=== PATIENT | female | born 1960 | race Hispanic/Latino ===

== ENCOUNTER 2019-02-28 18:09 | Emergency (ER) | payer BC, OTHER ==
[~2019-02-28] VITALS: Ht 170.2 cm; Wt 93.0 kg
--- OUTSIDE RECORDS SUMMARY | 2019-02-28 18:13 | XMS REPORT ---
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 Allergies, Adverse Reactions, Alerts This patient has no known allergies or adverse reactions. Medications This patient has no known medications. Encounters Start Date/Time End Date/Time Encounter Type Admission Type Attending [facility] Care Department Encounter ID 2019-01-24 00:00:00 2019-01-24 00:00:00 Outpatient [facility] [id number] 2019-01-22 13:09:11 2019-01-22 13:09:11 Emergency [facility] [id number] 2019-01-17 00:00:00 2019-01-17 00:00:00 Outpatient [facility] [id number] 2019-01-03 00:00:00 2019-01-03 00:00:00 Outpatient [facility] [id number] 2018-11-12 00:00:00 2018-11-12 00:00:00 Outpatient [facility] [id number] 2018-11-08 00:00:00 2018-11-08 00:00:00 Outpatient [facility] [id number] 2018-11-08 00:00:00 2018-11-08 00:00:00 Outpatient [facility] [id number] 2018-10-28 00:00:00 2018-10-28 00:00:00 Outpatient [facility] [id number] 2018-10-27 11:27:40 2018-10-27 11:27:40 Outpatient [facility] [id number] 2018-10-22 10:58:58 2018-10-22 10:58:58 Outpatient [facility] [id number] 2018-10-08 14:15:21 2018-10-08 14:15:21 Outpatient [facility] [id number] 2018-10-08 13:13:28 2018-10-08 13:13:28 Outpatient [facility] [id number] 2018-09-28 13:03:00 2018-09-28 13:03:00 Emergency [facility] [id number] 2018-09-28 12:34:27 2018-09-28 12:34:27 Outpatient [facility] [id number] 2018-09-20 11:53:21 2018-09-20 11:53:21 Outpatient [facility] [id number] 2018-09-20 06:22:08 2018-09-20 06:22:08 Outpatient [facility] [id number] 2018-09-20 00:00:00 2018-09-20 00:00:00 Outpatient [facility] [id number] 2018-09-19 22:28:32 2018-09-19 22:28:32 Emergency [facility] [id number] 2018-09-19 22:17:56 2018-09-19 22:17:56 Emergency [facility] [id number] 2018-09-19 21:29:17 2018-09-19 21:29:17 Emergency [facility] [id number] 2018-09-19 20:30:17 2018-09-19 20:30:17 Outpatient [facility] [id number] 2018-07-22 07:36:21 2018-07-22 07:36:21 Outpatient [facility] [id number] 2018-06-25 00:00:00 2018-06-25 00:00:00 Outpatient [facility] [id number] 2018-06-23 00:00:00 2018-06-23 00:00:00 Outpatient [facility] [id number] 2018-06-11 00:00:00 2018-06-11 00:00:00 Outpatient [facility] [id number] 2018-04-16 00:00:00 2018-04-16 00:00:00 Outpatient [facility] [id number] 2018-03-23 00:00:00 2018-03-23 00:00:00 Outpatient [facility] [id number] 2018-02-24 00:00:00 2018-02-24 00:00:00 Outpatient [facility] [id number] 2018-02-09 12:59:43 2018-02-09 12:59:43 Outpatient [facility] [id number] 2018-01-13 14:40:36 2018-01-13 14:40:36 Outpatient [facility] [id number] 2018-01-13 13:14:57 2018-01-13 13:14:57 Outpatient [facility] [id number] 2017-12-18 14:47:32 2017-12-18 14:47:32 Outpatient [facility] [id number] 2017-12-18 13:06:53 2017-12-18 13:06:53 Outpatient [facility] [id number] 2017-12-08 00:00:00 2017-12-08 00:00:00 Outpatient [facility] [id number] 2017-10-09 00:00:00 2017-10-09 00:00:00 Outpatient [facility] [id number] 2017-09-18 00:00:00 2017-09-18 00:00:00 Outpatient [facility] [id number] 2017-09-17 00:00:00 2017-09-17 00:00:00 Outpatient [facility] [id number] 2017-09-09 00:00:00 2017-09-09 00:00:00 Outpatient [facility] [id number] 2017-09-07 00:00:00 2017-09-07 00:00:00 Outpatient [facility] [id number] 2017-08-13 00:00:00 2017-08-13 00:00:00 Outpatient [facility] [id number] 2017-08-11 00:00:00 2017-08-11 00:00:00 Outpatient [facility] [id number] 2017-07-24 00:00:00 2017-07-24 00:00:00 Outpatient [facility] [id number] 2017-07-14 00:00:00 2017-07-14 00:00:00 Outpatient [facility] [id number] 2017-07-07 00:00:00 2017-07-07 00:00:00 Outpatient [facility] [id number] 2017-07-01 13:52:00 2017-07-01 13:52:00 Outpatient [facility] [id number] 2017-06-29 00:00:00 2017-06-29 00:00:00 Outpatient [facility] [id number] 2017-06-11 12:40:08 2017-06-11 12:40:08 Outpatient [facility] [id number] 2017-06-05 00:00:00 2017-06-05 00:00:00 Outpatient [facility] [id number] 2017-06-04 10:21:43 2017-06-04 10:21:43 Outpatient [facility] [id number] 2017-06-03 09:10:37 2017-06-03 09:10:37 Outpatient [facility] [id number] 2017-05-26 00:00:00 2017-05-26 00:00:00 Outpatient [facility] [id number] 2017-05-19 13:08:33 2017-05-19 13:08:33 Outpatient [facility] [id number] 2017-05-14 00:00:00 2017-05-14 00:00:00 Outpatient [facility] [id number] 2017-04-30 12:47:03 2017-04-30 12:47:03 Outpatient [facility] [id number] 2017-04-29 12:08:51 2017-04-29 12:08:51 Outpatient [facility] [id number] 2017-04-27 09:57:46 2017-04-27 09:57:46 Outpatient [facility] [id number] 2017-04-16 14:51:14 2017-04-16 14:51:14 Outpatient [facility] [id number] 2017-04-09 00:00:00 2017-04-09 00:00:00 Outpatient [facility] [id number] 2017-03-25 09:29:02 2017-03-25 09:29:02 Outpatient [facility] [id number] 2017-03-12 08:33:26 2017-03-12 08:33:26 Outpatient [facility] [id number] 2017-03-04 00:00:00 2017-03-04 00:00:00 Outpatient [facility] [id number] 2017-02-23 00:00:00 2017-02-23 00:00:00 Outpatient [facility] [id number] 2017-02-18 10:05:39 2017-02-18 10:05:39 Outpatient [facility] [id number] 2017-02-13 00:00:00 2017-02-13 00:00:00 Outpatient [facility] [id number] 2017-02-10 08:36:58 2017-02-10 08:36:58 Outpatient [facility] [id number] 2017-02-06 13:36:09 2017-02-06 13:36:09 Outpatient [facility] [id number] 2017-02-05 10:05:28 2017-02-05 10:05:28 Outpatient [facility] [id number] 2017-01-23 00:00:00 2017-01-23 00:00:00 Outpatient [facility] [id number] 2017-01-15 08:47:25 2017-01-15 08:47:25 Outpatient [facility] [id number] 2017-01-13 14:50:13 2017-01-13 14:50:13 Outpatient [facility] [id number] 2017-01-09 00:00:00 2017-01-09 00:00:00 Outpatient [facility] [id number] 2016-12-22 10:00:05 2016-12-22 10:00:05 Outpatient [facility] [id number] 2016-12-19 12:59:57 2016-12-19 12:59:57 Outpatient [facility] [id number] 2016-12-19 11:26:56 2016-12-19 11:26:56 Outpatient [facility] [id number] 2016-12-09 00:00:00 2016-12-09 00:00:00 Outpatient [facility] [id number] 2016-11-28 00:00:00 2016-11-28 00:00:00 Outpatient [facility] [id number] 2016-11-12 07:50:30 2016-11-12 07:50:30 Outpatient [facility] [id number] 2016-11-05 11:17:45 2016-11-05 11:17:45 Outpatient [facility] [id number] 2016-10-27 13:05:13 2016-10-27 13:05:13 Outpatient [facility] [id number] 2016-10-16 17:11:56 2016-10-16 17:11:56 Outpatient [facility] [id number]
[2019-02-28 19:29] LABS: BILIRUBIN,URINE NEGATIVE (NEGATIVE); CLARITY,URINE SL CLOUDY (CLEAR); COLOR,URINE YELLOW (YELLOW); KETONES,URINE NEGATIVE (NEGATIVE); LEUKOCYTE ESTERASE ,URINE LARGE (NEGATIVE); NITRITE,URINE NEGATIVE (NEGATIVE); PROTEIN,URINE DIPSTICK NEGATIVE (NEGATIVE); URINE UROBILINOGEN 0.2 mg/dL (0.2 - 1)
--- NOTE | 2019-02-28 19:31 | Diagnostic Imaging Report ---
EXAMINATION: CHEST 2 VIEWS INDICATION: Cough ^Cough x1 month ^[id number] ^190 COMPARISON: None FINDINGS: TUBES and LINES: None. LUNGS: Lungs are well inflated. Perihilar peribronchial hazy opacity could be due to bronchitis. There is no evidence of pneumonia or pulmonary edema. PLEURA: No pleural effusion or pneumothorax. HEART AND MEDIASTINUM: The cardiomediastinal silhouette is unremarkable. BONES AND SOFT TISSUES: No acute osseous lesion. Soft tissues are unremarkable. UPPER ABDOMEN: No free air under the diaphragm. IMPRESSION: Perihilar peribronchial hazy opacity could be due to bronchitis. Signed by: Dr. Arjun Beavers M.D. on 02/28/2019 7:27 PM
[2019-02-28 19:42] LABS: BACTERIA,URINE FEW /HPF; EPITHELIAL CELLS,URINE FEW /LPF
[2019-02-28 20:37] VITALS: BP 127/72
== END 2019-02-28 20:41 | disposition home or self-care (01) ==
LOC: ER 18:09
DX: R05 Cough (principal); J20.9 Acute bronchitis, unspecified; R35.0 Frequency of micturition; N30.91 Cystitis, unspecified with hematuria
CPT/HCPCS: 71046; 81001; 99283

== ENCOUNTER 2021-11-21 11:05 | Observation (INO) | payer BC, OTHER ==
[~2021-11-21] VITALS: Ht 170.2 cm; Wt 93.0 kg
[2021-11-21 12:18] LABS: BASOPHILS # (AUTO) 0.2 (0.0-0.1); BASOPHILS % 1.4 % (0.0-1.0); EOSINOPHILS # (AUTO) 0.4 (0.0-0.4); EOSINOPHILS % 3.3 % (0.0-6.0); HEMATOCRIT 41.6 % (34.2-44.1); HEMOGLOBIN 13.8 g/dL (12.0-16.0); LYMPHOCYTES # (AUTO) 3.3 (1.0-3.2); LYMPHOCYTES % 30.2 % (18.0-39.1); MEAN CORPUSCULAR HEMOGLOBIN 31.8 pg (28-32); MEAN CORPUSCULAR HGB CONC 33.2 g/dL (31-35); MEAN CORPUSCULAR VOLUME 95.9 fL (81-99); MONOCYTES # (AUTO) 0.8 (0.2-0.8); MONOCYTES % 7.1 % (4.4-11.3); NEUTROPHILS # (AUTO) 6.3 (2.1-6.9); NEUTROPHILS % 57.5 % (38.7-80.0); PLATELET COUNT 252 x10e3/uL (140-360); RED BLOOD COUNT 4.34 x10e6/uL (3.6-5.1); RED CELL DISTRIBUTION WIDTH 12.4 % (11.7-14.4)
[2021-11-21] MEDS ORDERED: NITROGLYCERIN 0.4 MG SUBL SL PRN (12:30)
[2021-11-21 12:35] LABS: INR 0.93; PARTIAL THROMBOPLASTIN TIME 26.8 seconds (23.8-35.5); PROTHROMBIN TIME 13.3 seconds (11.9-14.5)
[2021-11-21 12:38] LABS: ALBUMIN 3.5 g/dL (3.5-5.0); ALBUMIN/GLOBULIN RATIO 0.8 (0.8-2.0); ANION GAP 16.3 mmol/L (8-16); CALCIUM 9.6 mg/dL (8.4-10.2); CREATININE, SERUM 0.81 mg/dL (0.57-1.11); MAGNESIUM 1.9 MG/DL (1.3-2.1); POTASSIUM 4.3 mmol/L (3.5-5.1)
[2021-11-21 12:44] LABS: CREATINE KINASE MB 0.9 ng/mL (0-5.0)
[2021-11-21] MEDS: FAMOTIDINE 20 MG/2 ML VIAL IV SCH (13:30)
[2021-11-21] MEDS: ONDANSETRON HCL INJ 2MG/ML 2ML 2 MG/ML VIAL IV PRN ×3 (13:30→18:43)
[2021-11-21] MEDS: Morphine 2mg Syringe 2 MG/ML SYR IV PRN ×2 (14:20→18:43)
[2021-11-21 19:46] LABS: CREATINE KINASE MB 0.7 ng/mL (0-5.0)
[2021-11-21 21:52] VITALS: BP 139/78
[2021-11-21] MEDS: HYDROMORPHONE 1MG/1ML INJ IV PRN (21:52)
[2021-11-21 22:55] VITALS: BP 139/78
[2021-11-21 23:00] VITALS: BP 139/78
[2021-11-22] MEDS: FAMOTIDINE 20 MG/2 ML VIAL IV SCH ×2 (00:06→13:30)
[2021-11-22 00:47] LABS: CREATINE KINASE MB 0.6 ng/mL (0-5.0)
[2021-11-22] MEDS: ONDANSETRON HCL INJ 2MG/ML 2ML 2 MG/ML VIAL IV PRN (02:27)
[2021-11-22] MEDS: HYDROMORPHONE 1MG/1ML INJ IV PRN ×4 (02:27→17:29)
[2021-11-22 04:00] VITALS: BP 105/54
[2021-11-22 07:00] LABS: BASOPHILS # (AUTO) 0.1 (0.0-0.1); BASOPHILS % 0.9 % (0.0-1.0); EOSINOPHILS # (AUTO) 0.3 (0.0-0.4); EOSINOPHILS % 3.2 % (0.0-6.0); HEMATOCRIT 37.2 % (34.2-44.1); HEMOGLOBIN 12.5 g/dL (12.0-16.0); LYMPHOCYTES # (AUTO) 3.3 (1.0-3.2); LYMPHOCYTES % 30.8 % (18.0-39.1); MEAN CORPUSCULAR HEMOGLOBIN 32.1 pg (28-32); MEAN CORPUSCULAR HGB CONC 33.6 g/dL (31-35); MEAN CORPUSCULAR VOLUME 95.4 fL (81-99); MONOCYTES # (AUTO) 0.8 (0.2-0.8); MONOCYTES % 7.5 % (4.4-11.3); NEUTROPHILS # (AUTO) 6.1 (2.1-6.9); NEUTROPHILS % 57.3 % (38.7-80.0); PLATELET COUNT 221 x10e3/uL (140-360); RED CELL DISTRIBUTION WIDTH 12.4 % (11.7-14.4)
[2021-11-22 07:10] LABS: ALBUMIN 3.1 g/dL (3.5-5.0); ALBUMIN/GLOBULIN RATIO 0.9 (0.8-2.0); ANION GAP 13.7 mmol/L (8-16); CALCIUM 8.1 mg/dL (8.4-10.2); CREATININE, SERUM 0.79 mg/dL (0.57-1.11); POTASSIUM 3.7 mmol/L (3.5-5.1)
[2021-11-22 07:29] LABS: CREATINE KINASE MB 0.4 ng/mL (0-5.0)
[2021-11-22 07:49] VITALS: BP 113/59
[2021-11-22 08:00] VITALS: BP 113/59
[2021-11-22] MEDS ORDERED: ASPIRIN 81 MG ENTERIC COATED PO SCH (09:00)
[2021-11-22 11:50] VITALS: BP 111/67
[2021-11-22 15:35] VITALS: BP 124/68
[2021-11-22] MEDS ORDERED: DOCUSATE SODIUM 100 MG CAP PO SCH (17:00)
[2021-11-22] MEDS ORDERED: ECOTRIN81 MG PO (19:08)
[2021-11-22] MEDS ORDERED: ULTRAM 50MG50 MG PO (19:10)
[2021-11-22 20:00] VITALS: BP 125/83
== END 2021-11-22 19:40 | disposition home or self-care (01) ==
LOC: ER 11:10 → ERHOLD 12:25 → MED/SURG 22:02
PROVIDERS: ADMIT Internal Medicine; ATTEND Internal Medicine
DX: R07.9 Chest pain, unspecified (principal); R20.2 Paresthesia of skin; E78.5 Hyperlipidemia, unspecified; Z88.0 Allergy status to penicillin; F17.210 Nicotine dependence, cigarettes, uncomplicated; M54.50 Low back pain, unspecified; Z20.822 Contact with and (suspected) exposure to COVID-19
CPT/HCPCS: 36415 ×2; 70450; 71045; 80053 ×2; 80061; 82550 ×2; 82553 ×2; 83735; 83880; 84484 ×2; 85025 ×2; 85610; 85730; 93005; 93306; 94799 ×2; G0378 ×2; J1170 ×2; J2270; J2405 ×2; U0002